=== PATIENT | male | born 1945 | race Caucasian/White ===

== ENCOUNTER 2017-12-22 09:11 | Day surgery (SDC) | payer MEDICARE, OTHER ==
[~2017-12-22 09:11] MED LIST: HYDROmorphone 2 MG/ML VIAL IV; LIDOCAINE 1% PF 2 ML VIAL. ID; MORPHINE SULFATE 2 MG/ML DISP.SYRIN. IV; ONDANSETRON PF 4 MG/2 ML VIAL. IV; PROCHLORPERAZINE 10 MG/2 ML VIAL. IV; fentaNYL PF VIAL 100 MCG/2 ML VIAL IV
[2017-12-22] MEDS: IV RINGERS,LACTATED 1000ML 1,000 ML IV (10:33)
[2017-12-22 10:42] LABS: ADD MAN DIFF? NO
[2017-12-22 10:54] LABS: ANION GAP 10 (6-14); BLOOD UREA NITROGEN 27 mg/dL (8-26); BUN/CREATININE RATIO 23 (6-20); CALCIUM 8.5 mg/dL (8.5-10.1); CARBON DIOXIDE 23 mmol/L (21-32); CHLORIDE 103 mmol/L (98-107); CREATININE 1.2 mg/dL (0.7-1.3); GFR 59.2; GLUCOSE 134 mg/dL (70-99); POTASSIUM 4.2 mmol/L (3.5-5.1); SODIUM 136 mmol/L (136-145)
[2017-12-22 10:58] LABS: BASO % 1 % (0-3); EOS # 0.4 x10^3/uL (0.0-0.7); EOS % 4 % (0-3); HEMATOCRIT 36.2 % (39.0-53.0); HEMOGLOBIN 12.1 g/dL (13.0-17.5); LYMPH # 2.2 x10^3/uL (1.0-4.8); LYMPH % 25 % (24-48); MEAN CORPUSCULAR HEMOGLOBIN 31 pg (25-35); MEAN CORPUSCULAR HGB CONC 34 g/dL (31-37); MEAN CORPUSCULAR VOLUME 92 fL (79-100); MONO # 0.7 x10^3/uL (0.0-1.1); MONO % 8 % (0-9); NEUT # 5.6 x10^3uL (1.8-7.7); NEUT % 63 % (31-73); PLATELET COUNT 260 x10^3/uL (140-400); RED BLOOD COUNT 3.95 x10^6/uL (4.30-5.70); RED CELL DISTRIBUTION WIDTH 13.2 % (11.5-14.5); WHITE BLOOD COUNT 8.8 x10^3/uL (4.0-11.0)
[2017-12-22 11:00] LABS: ALBUMIN 3.7 g/dL (3.4-5.0); ALK PHOS 76 U/L (46-116); ALT (SGPT) 23 U/L (16-63); AST (SGOT) 21 U/L (15-37); TOTAL BILIRUBIN 0.4 mg/dL (0.2-1.0); TOTAL PROTEIN 7.3 g/dL (6.4-8.2)
[2017-12-22] MEDS ORDERED: DEXAMETHASONE SOD PHOS 4 MG/ML VIAL (11:18)
[2017-12-22] MEDS ORDERED: POVIDONE-IODINE 10% TOPICAL OINTMENT 28GM TUBE. TP (11:18)
[2017-12-22] MEDS ORDERED: MIDAZOLAM HCL/PF 2 MG/2 ML VIAL. (11:46)
[2017-12-22] MEDS ORDERED: PROPOFOL 50 ML IV (11:46)
[2017-12-22] MEDS ORDERED: PROPOFOL 20 ML IV (11:47)
[2017-12-22] MEDS ORDERED: ceFAZolin 2GM PREMIX 2 GM/50 ML BAG IV (12:00)
[2017-12-22 12:03] LABS: SEDIMENTATION RATE 12 (0-15)
[2017-12-22] MEDS: LIDOCAINE 1% PF 30 ML VIAL. (12:12)
[2017-12-22] MEDS: BUPIVACAINE MPF 0.5% 30 ML VIAL. (12:12)
[2017-12-22 12:48] LABS: POC GLUCOSE 98 mg/dL (70-99)
== END 2017-12-22 14:33 | disposition home or self-care (01) ==
LOC: SURG 09:11
DX: M86.9 Osteomyelitis, unspecified (principal); E11.69 Type 2 diabetes mellitus with other specified complication; I11.0 Hypertensive heart disease with heart failure; I50.9 Heart failure, unspecified; K21.9 Gastro-esophageal reflux disease without esophagitis; Z87.39 Personal history of other diseases of the musculoskeletal system and connective tissue; Z86.14 Personal history of Methicillin resistant Staphylococcus aureus infection; Z86.39 Personal history of other endocrine, nutritional and metabolic disease; Z98.890 Other specified postprocedural states
CPT/HCPCS: 28820; 36415; 73630; 80053; 82962; 85025; 85651; C1769; J0690; J1100; J2250; J2704; J3490

== ENCOUNTER → 2018-10-19 | Outpatient (CLI) | payer MEDICARE, OTHER ==
[2017-12-22 13:49] VITALS: BP 158/79
[~2018-10-19] MED LIST changes: +ALBU2.5V5 NEB; +ALFU10TA PO; +AMLO1TAB97 PO; +ASPI-630 PO; +BYSTOLIC20 MG PO; +BYSTOLIC5 MG PO; +CARV12.511 PO; +CETI10TA22 PO; +CHLO25TA PO; +CHOL10003 PO; +CHOL5000 PO; +CLIN300C8 PO; +CYAN200014 PO; +DOXY100T PO; +FURO20TA3 PO; +HYDR-2761 PO; +HYDR12.58 PO; -HYDROmorphone 2 MG/ML VIAL IV; +INSU100C4 SQ; +INSU100I13 SQ; +INSU100I17 SQ; +INSU100V31 SQ; +INSU100V8 SQ; -LIDOCAINE 1% PF 2 ML VIAL. ID; +LISI-334 PO; +LISI2.5T PO; +MECL25TA PO; +MELO15TA23 PO; -MORPHINE SULFATE 2 MG/ML DISP.SYRIN. IV; +NEBI5TAB3 PO; +NIFE30TA15 PO; +OLME40TA12 PO; +OMEG1CAP27 PO; +OMEP20CA5 PO; +OMEP20TA63 PO; +OMEP40CA5 PO; -ONDANSETRON PF 4 MG/2 ML VIAL. IV; +OXYC1TAB8 PO; -PROCHLORPERAZINE 10 MG/2 ML VIAL. IV; +SIMV10TA PO; +TAMS0.4C2 PO; +VARD20TA2 PO; +ZINC50TA33 PO; -fentaNYL PF VIAL 100 MCG/2 ML VIAL IV
--- NOTE | 2018-10-20 14:23 | OP ---
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 POSTOPERATIVE DIAGNOSES: Osteomyelitis, right foot with nonhealing diabetic foot ulceration. PROCEDURE: Transmetatarsal amputation to the right foot. SURGEON: Bolivar Guerrero DPM ANESTHESIA: LMA with local, ankle block to the right. HEMOSTASIS: Right ankle tourniquet at 250 mmHg. INDICATIONS: The patient is a 72-year-old male who has been treated with a wound VAC for a delayed nonhealing wound to the plantar second and third metatarsal remnant. The patient then developed a fifth metatarsal head ulceration, which recently worsened and was noted to be necrotic with probe to bone, thus recommended the patient to proceed with definitive transmetatarsal amputation to resect these wounds and the hypertrophic bone. Radiographs did show hypertrophic bone to the second and third metatarsals distally and discussed with the patient the risks, benefits, complications to include delayed healing, nonhealing, need for further surgery, re-ulceration, the patient could have infection, DVT, pulmonary embolism, numbness, tingling, chronic swelling, chronic pain, gout and all questions were answered. No guarantees made. DESCRIPTION OF PROCEDURE: The patient was transported to the operating room via a cart and placed on the operating room table in supine position. The patient was receiving IV Zyvox from Infectious Disease recommendations. The patient was began LMA and administered ankle block to the right ankle consisting of a 1:1 mixture of 1% lidocaine plain and 0.5% Marcaine plain, 20 mL total. The right foot was then prepped and draped in usual aseptic manner and a well-padded tourniquet was placed over the right ankle. Attention was directed to the right foot where a fishmouth incision was made to resect the ulceration sub-second and third metatarsal and sub-fifth metatarsal. Next, a sagittal saw was used to resect the second, third, fourth and fifth metatarsals to the proximal shafts to follow a parabola satisfactory for the metatarsals. The small vessels were cauterized and the wound culture intraoperatively was taken. The patient was then copiously irrigated with 3 liter bag pulse lavage and then the skin was closed with 3-0 Vicryl and 3-0 nylon, applied adaptic soaked in Betadine, 4 x 4s, Kerlix bandage and Vinnie bandage and then applied 4-inch posterior mold splint to the right and the patient was to be nonweightbearing to the right lower extremity. Please note intraoperative findings, we e did note there was a pustular pocket just dorsal to the fifth metatarsal. This was debrided out with necrotic tissue and did not note any proximal sinus tracking. Postop instructions were in the chart. Recommend social work to place the patient in short-term care facility for continued IV antibiotics and wound care and the patient has been debilitated, will need physical therapy. Recommend continuing knee walker to the right and nonweightbearing. BOLIVAR GUERRERO DPM DR: Christophe JOB#: [id number] / [id number]
== END | disposition home or self-care (01) ==
LOC: SPEC 11:17
PROVIDERS: ATTEND Podiatrist Foot & Ankle Surgery
DX: E11.621 Type 2 diabetes mellitus with foot ulcer (principal); M86.8X7 Other osteomyelitis, ankle and foot; Z79.4 Long term (current) use of insulin
CPT/HCPCS: 87071; 87075; 87186